=== PATIENT | female | born 1965 | race African-American/Black ===

== ENCOUNTER 2016-07-02 15:00 | Outpatient (RCR) | payer MEDICARE, MEDICAID ==
[~2016-07-02 15:00] MED LIST: ALBUTEROL0.09 MG/A1 IH; ANTIVERT 25MG25 MG PO; ATIVAN 0.50.5 MG/TAB; ATIVAN 0.50.5 MG/TAB PO; ATIVAN 1MG T1 MG/TAB PO; CLEOCIN HCL300 MG PO; CYMBALTA 60MG60 MG PO; DIAMOX125 MG; DOXYCYCLINE 10100 MG PO; FLEXERIL10 MG PO; GABAPENTIN300 MG PO; K-DUR20 MEQ PO; LUNESTA3 MG PO; MAG-OX 400400 MG/TAB PO; MOTRIN 800800 MG/TAB PO; MUSCLE RELAXER; NAPROSYN500 MG PO; NEURONTIN600 MG/TAB PO; NO HOME MEDICATIONS; PERCOCET 325 MG1 TA2 PO; PHENERGAN 25 TA25 MG PO; PRILOSEC 20MG20 MG PO; SEROQUEL 2525 MG/TAB PO; SEROQUEL300 MG; SEROQUEL300 MG PO; SOMA; VALIUM 2MG T2 MG/TAB PO; ZITHROMAX 250M250 MG PO; ZOFRAN 4MG T4 MG/TAB PO; [UNRECOGNIZED DRUG - OTHER]; [UNRECOGNIZED DRUG - REMARK]
== END 2016-07-08 12:44 | disposition still patient (30) ==
LOC: WSPT 15:00
DX: M54.2 Cervicalgia (principal); Z87.828 Personal history of other (healed) physical injury and trauma
CPT/HCPCS: G8978-GP; G8979-GP; G8980-GP

== ENCOUNTER → 2016-12-11 | Outpatient (CLI) | payer SELFPAY ==
[~2016-12-11] VITALS: Ht 160 cm; Wt 46.0 kg
[2016-12-11 13:42] VITALS: BP 145/102; PULSE 73
[2016-12-11 15:08] VITALS: BP 154/97; PULSE 69
== END ==
LOC: COL.RAD 13:00
DX: M54.12 Radiculopathy, cervical region (principal)
CPT/HCPCS: J1100

== ENCOUNTER 2017-07-26 22:33 | Inpatient (IN) | payer MEDICARE, MEDICAID ==
[~2017-07-26] VITALS: Ht 160 cm; Wt 48.2 kg
[2017-07-26 23:30] LABS: BASO # 0.1 (0.0-0.2); BASO % 1.2 % (0.0-2.0); EOS % 0.2 % (0-4.0); GRAN # 1.8 (1.4-6.5); GRAN % 34.9 % (42.2-75.2); HEMATOCRIT 38.4 % (37.0-47.0); HEMOGLOBIN 13.3 g/dl (12.5-16.0); LYMPH # 2.4 (1.2-3.4); MEAN CELL VOLUME 92 fl (80.0-100.0); MEAN CORPUSCULAR HEMOGLOBIN 32 pg (27.0-31.0); MEAN CORPUSCULAR HGB CONC 35 g/dl (33.0-37.0); MEAN PLATELET VOLUME 8.7 fl (7.4-10.4); MONO # 0.8 (0.1-0.6); MONO % 15.5 % (1.7-9.3); PLATELET COUNT 277 K/mm3 (130-400); RED BLOOD COUNT 4.18 M/mm3 (4.10-5.30); REDCELL DISTRIBUTION WIDTH-CV 15.2 % (11.5-14.5)
[2017-07-26 23:39] LABS: ALBUMIN 5.2 gm/dL (3.5-5.0); BILIRUBIN,TOTAL 1.4 mg/dL (0.0-1.0); CREATININE, serum 0.67 mg/dL (0.52-1.25)
[2017-07-26 23:46] LABS: POTASSIUM 2.7 mmol/L (3.4-5.0)
[2017-07-27] VITALS (10 sets, daily range): BP systolic 103–171; BP diastolic 72–105; PULSE 66–93; TEMP 97.4–99.4
[2017-07-27 03:31] LABS: COLLECTION METHOD CLEAN CATCH
[2017-07-27 03:36] LABS: PH 7 (5-8); SQUAMOUS EPITHELIAL 0-2 /hpf; URINE APPEARANCE Clear; URINE BACTERIA Rare /hpf; URINE BILIRUBIN Negative (NEGATIVE); URINE BLOOD Negative (NEGATIVE); URINE COLOR Yellow; URINE GLUCOSE Negative (NEGATIVE); URINE KETONE Negative (NEGATIVE); URINE LEUKOCYTE ESTERASE Negative (NEGATIVE); URINE NITRATE Negative (NEGATIVE); URINE PROTEIN(semi-quant) Negative (NEGATIVE); URINE RBC 0-2 /hpf; URINE UROBILINOGEN Negative (NEGATIVE)
[2017-07-27] MEDS ORDERED: NEURONTIN800 MG/TAB PO (03:52)
[2017-07-27] MEDS ORDERED: PRILOSEC 20MG20 MG PO (03:55)
[2017-07-27] MEDS ORDERED: VITAMIN D3400 I1 PO (03:56)
[2017-07-27 11:11] LABS: CREATININE, serum 0.62 mg/dL (0.52-1.25); MAGNESIUM 1.8 mg/dL (1.6-2.3); POTASSIUM 4.7 mmol/L (3.4-5.0)
[2017-07-28 01:50] VITALS: BP 118/78; PULSE 77; TEMP 98.7
[2017-07-28 04:20] VITALS: BP 122/70; PULSE 66; TEMP 98.9
[2017-07-28 05:58] VITALS: BP 116/82; PULSE 80
[2017-07-28 06:55] LABS: BASO % 0.7 % (0.0-2.0); EOS # 0.1 (0.0-0.7); EOS % 1.7 % (0-4.0); GRAN # 1.4 (1.4-6.5); GRAN % 34.6 % (42.2-75.2); LYMPH # 2.1 (1.2-3.4); LYMPH % 49.9 % (20.0-51.0); MEAN CELL VOLUME 95 fl (80.0-100.0); MEAN CORPUSCULAR HGB CONC 33 g/dl (33.0-37.0); MEAN PLATELET VOLUME 9.7 fl (7.4-10.4); MONO # 0.5 (0.1-0.6); MONO % 12.9 % (1.7-9.3); PLATELET COUNT 230 K/mm3 (130-400); RED BLOOD COUNT 3.62 M/mm3 (4.10-5.30); REDCELL DISTRIBUTION WIDTH-CV 15.4 % (11.5-14.5)
[2017-07-28 07:06] LABS: CALCIUM 9.4 mg/dL (8.4-10.2); CREATININE, serum 0.82 mg/dL (0.52-1.25); MAGNESIUM 1.8 mg/dL (1.6-2.3); POTASSIUM 4.3 mmol/L (3.4-5.0)
[2017-07-28 07:12] LABS: HEMATOCRIT 34.5 % (37.0-47.0); HEMOGLOBIN 11.4 g/dl (12.5-16.0); MEAN CORPUSCULAR HEMOGLOBIN 31 pg (27.0-31.0)
[2017-07-28 08:12] VITALS: BP 151/91; PULSE 73; TEMP 97.4
[2017-07-28] MEDS ORDERED: FOLIC ACID 11 MG/TA1 PO (10:46)
[2017-07-28] MEDS ORDERED: DUO-KAPS1 CAP PO (10:47)
[2017-07-28] MEDS ORDERED: THIAMINE 1100 MG/TAB PO (10:47)
[2017-07-28 11:41] VITALS: BP 138/87; PULSE 81; TEMP 97.8
== END 2017-07-28 12:30 | disposition home or self-care (01) | DRG 641 ==
LOC: COL.ER 22:33 → MEDICAL 07-27 03:45
PROVIDERS: Emergency Medicine; Nurse Practitioner; Physician Assistant
DX: E87.6 Hypokalemia (principal); E44.0 Moderate protein-calorie malnutrition; Z68.1 Body mass index [BMI] 19.9 or less, adult; E83.42 Hypomagnesemia; R19.7 Diarrhea, unspecified; G62.9 Polyneuropathy, unspecified; F10.10 Alcohol abuse, uncomplicated; F17.210 Nicotine dependence, cigarettes, uncomplicated; Z23 Encounter for immunization
CPT/HCPCS: 99222-AI; 99239; C9113; J3411; J3475; J3480; J7030

== ENCOUNTER → 2018-04-23 | Outpatient (CLI) | payer MEDICARE, MEDICAID ==
[~2018-04-23] MED LIST changes: +DUO-KAPS1 CAP PO; +FOLIC ACID 11 MG/TA1 PO; +NEURONTIN800 MG/TAB PO; +THIAMINE 1100 MG/TAB PO; +VITAMIN D3400 I1 PO
== END ==
LOC: COL.RAD 08:06
DX: G43.A1 Cyclical vomiting, in migraine, intractable (principal)
CPT/HCPCS: A9541

== ENCOUNTER 2018-11-02 17:54 | Emergency (ER) | payer MEDICARE, MEDICAID ==
[~2018-11-02] VITALS: Ht 160 cm; Wt 54.5 kg
[~2018-11-02 17:54] MED LIST changes: +CARAFATE 1GM1 G PO; +PROTONIX 40MG T40 MG PO
[2018-11-02 18:09] VITALS: TEMP 97
[2018-11-02 19:14] LABS: BASO # 0.1 (0.0-0.2); EOS % 0.8 % (0-4.0); GRAN # 1.3 (1.4-6.5); GRAN % 26.5 % (42.2-75.2); HEMATOCRIT 38.7 % (37.0-47.0); LYMPH # 3.2 (1.2-3.4); LYMPH % 66.8 % (20.0-51.0); MEAN CELL VOLUME 95 fl (80.0-100.0); MEAN CORPUSCULAR HEMOGLOBIN 32 pg (27.0-31.0); MEAN CORPUSCULAR HGB CONC 34 g/dl (33.0-37.0); MEAN PLATELET VOLUME 8.8 fl (7.4-10.4); MONO # 0.2 (0.1-0.6); MONO % 4.7 % (1.7-9.3); PLATELET COUNT 235 K/mm3 (130-400); RED BLOOD COUNT 4.09 M/mm3 (4.10-5.30); REDCELL DISTRIBUTION WIDTH-CV 15.9 % (11.5-14.5)
[2018-11-02 19:26] LABS: ALANINE AMINOTRANSFERASE 6 U/L (9-52); ALBUMIN 4.5 gm/dL (3.5-5.0); ALCOHOL(ethanol),MEDICAL 248 mg/dL; ALKALINE PHOSPHATASE 86 U/L (50-136); ANION GAP 15 mmol/L (7-16); AST,SGOT 30 U/L (15-37); BILIRUBIN,TOTAL 0.2 mg/dL (0.0-1.0); BLOOD UREA NITROGEN 14 mg/dL (7-17); CALCIUM 9.1 mg/dL (8.4-10.2); CARBON DIOXIDE 31 mmol/L (22-30); CHLORIDE 102 mmol/L (98-107); CREATININE, serum 0.65 (0.52-1.25); GLUCOSE 84 mg/dL (74-106); MAGNESIUM 1.5 mg/dL (1.6-2.3); PHOSPHOROUS 4.5 mg/dL (2.5-4.5); POTASSIUM 3.4 mmol/L (3.4-5.0); SODIUM 147 mmol/L (137-145); TOTAL PROTEIN 7.5 gm/dL (6.4-8.2)
[2018-11-02 19:34] LABS: ACETAMINOPHEN < 10 ug/mL (10-30); SALICYLATE < 1.0 mg/dL
[2018-11-02 21:13] LABS: COLLECTION METHOD CLEAN CATCH
[2018-11-02 21:20] LABS: MUCOUS Present /lpf; PH 7 (5-8); SQUAMOUS EPITHELIAL 0-2 /hpf; URINE APPEARANCE Clear; URINE BACTERIA None Seen /hpf; URINE BILIRUBIN Negative (NEGATIVE); URINE BLOOD Negative (NEGATIVE); URINE COLOR Yellow; URINE GLUCOSE Negative (NEGATIVE); URINE KETONE Negative (NEGATIVE); URINE LEUKOCYTE ESTERASE Negative (NEGATIVE); URINE NITRATE Negative (NEGATIVE); URINE PROTEIN(semi-quant) 1+ (NEGATIVE); URINE RBC 0-2 /hpf; URINE UROBILINOGEN Negative (NEGATIVE)
[2018-11-02 21:31] LABS: TRICYCLIC ANTIDEPRESS URINE NEGATIVE
[2018-11-02] MEDS ORDERED: COZAAR 50MG50 MG/TAB PO (23:24)
[2018-11-03 05:27] VITALS: BP 141/79; PULSE 80
== END 2018-11-03 05:29 | disposition home or self-care (01) ==
LOC: COL.ER 17:54
PROVIDERS: Emergency Medicine
DX: R45.851 Suicidal ideations (principal); F32.9 Major depressive disorder, single episode, unspecified; F10.129 Alcohol abuse with intoxication, unspecified; K21.9 Gastro-esophageal reflux disease without esophagitis; F17.210 Nicotine dependence, cigarettes, uncomplicated; F12.10 Cannabis abuse, uncomplicated; Y90.8 Blood alcohol level of 240 mg/100 ml or more

== ENCOUNTER → 2020-01-02 | Outpatient (CLI) | payer MEDICARE, MEDICAID ==
[~2020-01-02] MED LIST changes: +COZAAR 50MG50 MG/TAB PO
== END ==
LOC: COL.RAD 12-26 14:00
DX: M46.1 Sacroiliitis, not elsewhere classified (principal)
CPT/HCPCS: G0260; J3301

== ENCOUNTER 2020-07-24 22:41 | Emergency (ER) | payer MEDICARE, MEDICAID ==
[~2020-07-24] VITALS: Ht 160 cm; Wt 63.6 kg
[2020-07-24 22:56] VITALS: TEMP 97.6
[2020-07-25] MEDS ORDERED: MEDROL 4MG DOSPA4 MG PO (00:25)
[2020-07-25] MEDS ORDERED: FLEXERIL 1010 MG/TAB PO (00:25)
[2020-07-25 01:06] VITALS: BP 138/70; PULSE 66
== END 2020-07-25 01:06 | disposition home or self-care (01) ==
LOC: COL.ER 22:41
DX: M54.16 Radiculopathy, lumbar region (principal); F17.200 Nicotine dependence, unspecified, uncomplicated; Z90.710 Acquired absence of both cervix and uterus; Z88.0 Allergy status to penicillin; Z88.5 Allergy status to narcotic agent; Z88.6 Allergy status to analgesic agent
CPT/HCPCS: J1170; J1885; J3360

== ENCOUNTER → 2020-08-03 | Outpatient (CLI) | payer MEDICARE, MEDICAID ==
[~2020-08-03] MED LIST changes: +FLEXERIL 1010 MG/TAB PO; +MEDROL 4MG DOSPA4 MG PO
== END ==
LOC: COL.RAD 12:32
DX: M46.1 Sacroiliitis, not elsewhere classified (principal)
CPT/HCPCS: G0260; J3301

== ENCOUNTER 2020-09-06 16:15 | Outpatient (RCR) | payer MEDICARE, MEDICAID | END 2020-10-28 | disposition still patient (30) | LOC: WSPT | DX: M46.1 Sacroiliitis, not elsewhere classified (principal) ==

== ENCOUNTER 2020-12-19 14:22 | Emergency (ER) | payer MEDICARE, MEDICAID ==
[~2020-12-19] VITALS: Ht 160 cm; Wt 59.1 kg
[2020-12-19 14:40] VITALS: BP 151/76; TEMP 98.2
[2020-12-19] MEDS ORDERED: FLEXERIL 1010 MG/TAB PO (15:47)
[2020-12-19 16:09] VITALS: PULSE 57
== END 2020-12-19 16:10 | disposition home or self-care (01) ==
LOC: COL.ER 14:22
DX: M54.2 Cervicalgia (principal); M62.838 Other muscle spasm; F17.210 Nicotine dependence, cigarettes, uncomplicated; Z88.6 Allergy status to analgesic agent
CPT/HCPCS: J1885

== ENCOUNTER → 2021-03-29 | Outpatient (CLI) | payer MEDICARE, MEDICAID | LOC: COL.RAD 10:30 | DX: M46.1 Sacroiliitis, not elsewhere classified (principal) | CPT/HCPCS: G0260; J3301; Q9967 ==

== ENCOUNTER → 2021-08-26 | Outpatient (CLI) | payer MEDICARE, MEDICAID ==
[~2021-08-26] VITALS: Ht 160 cm; Wt 55.9 kg
[2021-08-26 13:17] VITALS: BP 160/80; PULSE 71; TEMP 97.5
[2021-08-26 13:55] VITALS: BP 151/76; PULSE 71
== END ==
LOC: COL.RAD 12:58
DX: M51.36 Other intervertebral disc degeneration, lumbar region (principal)
CPT/HCPCS: J3301

== ENCOUNTER → 2022-01-15 | Outpatient (CLI) | payer MEDICARE, MEDICAID ==
[~2022-01-15] MED LIST changes: +ASPIRIN 81M81 MG/TA2 PO; +LIPITOR 40MG TA40 MG PO; +LOPRESSOR 225 MG/TAB PO; +NICODERM C21 MG/PATC TD; +NITROSTAT0.4 MG/TAB SL; +PLAVIX 75MG TAB75 MG PO
== END ==
LOC: COL.RAD 07:11
DX: M46.1 Sacroiliitis, not elsewhere classified (principal)
CPT/HCPCS: G0260; J3301

== ENCOUNTER 2022-02-02 23:01 | Inpatient (IN) | payer MEDICARE, MEDICAID ==
[~2022-02-02] VITALS: Ht 160 cm; Wt 56.9 kg
[~2022-02-02 23:01] MED LIST changes: -ASPIRIN 81M81 MG/TA2 PO; -LIPITOR 40MG TA40 MG PO; -LOPRESSOR 225 MG/TAB PO; -NICODERM C21 MG/PATC TD; -NITROSTAT0.4 MG/TAB SL; -PLAVIX 75MG TAB75 MG PO
[2022-02-02 23:38] LABS: HEMATOCRIT 41.5 % (37.0-47.0); HEMOGLOBIN 13.8 g/dl (12.5-16.0); MEAN CELL VOLUME 91 fl (80.0-100.0); MEAN CORPUSCULAR HEMOGLOBIN 30 pg (27-31); MEAN CORPUSCULAR HGB CONC 33 g/dl (33.0-37.0); MEAN PLATELET VOLUME 8.7 fl (7.4-10.4); PLATELET COUNT 293 K/mm3 (130-400); RED BLOOD COUNT 4.54 M/mm3 (4.10-5.30); REDCELL DISTRIBUTION WIDTH-CV 13.7 % (11.5-14.5)
[2022-02-02 23:52] LABS: BAND 1 % (0-10); EOSINOPHIL 3 % (0-4); LYMPHOCYTE 62 % (20.0-51.0); NEUTROPHILS 26 % (42.0-75.2); PLATELET ESTIMATE NORMAL (NORMAL)
[2022-02-02 23:59] LABS: ALANINE AMINOTRANSFERASE 13 U/L (0-55); ALKALINE PHOSPHATASE 85 U/L (40-150); ANION GAP 15 mmol/L (7-16); AST,SGOT 16 U/L (5-34); BILIRUBIN,TOTAL 0.5 mg/dL (0.2-1.2); BLOOD UREA NITROGEN 12 mg/dL (10-20); CALCIUM 10.3 mg/dL (8.4-10.2); CARBON DIOXIDE 23 mmol/L (22-29); CHLORIDE 106 mmol/L (98-107); CREATININE, serum 0.94 mg/dL (0.57-1.11); GLUCOSE 134 mg/dL (70-99); LIPASE 19 U/L (8-78); SODIUM 144 mmol/L (136-145); TOTAL PROTEIN 7.1 gm/dL (6.2-8.1)
[2022-02-03] VITALS (18 sets, daily range): BP systolic 97–140; BP diastolic 59–114; PULSE 43–83; TEMP 97.6–98.6
[2022-02-03 00:02] LABS: ALCOHOL(ethanol),MEDICAL < 10 mg/dL (0-10); POTASSIUM 2.9 mmol/L (3.5-4.5)
[2022-02-03 00:06] LABS: TROPONIN-I < 0.010 ng/mL (0.00-0.033)
[2022-02-03 00:19] LABS: TSH w REFLEX 2.855 uIU/mL (0.350-4.940)
[2022-02-03 02:37] LABS: COLLECTION METHOD CLEAN CATCH
[2022-02-03 02:46] LABS: MUCOUS Present (NOT PRESENT); SQUAMOUS EPITHELIAL 0-2 /hpf (0-10); URINE BACTERIA None Seen /hpf (NONE SEEN); URINE COLOR Yellow (YELLOW)
[2022-02-03 02:47] LABS: PH 5 (5-8); URINE APPEARANCE Clear (CLEAR/HAZY); URINE BLOOD 2+ (NEGATIVE); URINE GLUCOSE Negative (NEGATIVE); URINE KETONE Negative (NEGATIVE); URINE NITRATE Negative (NEGATIVE); URINE PROTEIN(semi-quant) 1+ (NEGATIVE); URINE UROBILINOGEN Negative (NEGATIVE)
--- NOTE | 2022-02-03 05:00 | NUR ---
PT ARRIVED TO THE MEDICAL FLOOR TO 0330HRS TO ROOM 308. PT VERY DROWSY. I HAD TO CALL HER NAME SEVERAL TIMES TO GET HER TO ANSWER QUESTIONS. PT A&O X 4; VSS; O2 2L VIA NC. PT COMPLAINED TO CHEST AND ABD PAIN, SHE DESCRIBED PRESSURE, TIGHTNESS. PT DENIED SOB, N,V,D OR DIZZINESS. ADMISSIONS ASSESSMENT AND MED REC COMPLETE POSSIBLE. PT ORIENTED TO ROOM, ALTHOUGH SHE FELL ASLEEP THRU MOST OF IT. WILL NEED REINFORCEMENT. CALL LIGHT WITHIN REACH.
[2022-02-03 06:44] LABS: BASO # 0.1 K/mm3 (0.0-0.2); BASO % 0.4 % (0.0-2.0); CALCIUM 9.3 mg/dL (8.4-10.2); CREATININE, serum 0.71 mg/dL (0.57-1.11); EOS % 0.1 % (0.0-4.0); GRAN # 9.5 K/mm3 (1.4-6.5); GRAN % 76.4 % (42.2-75.2); HEMATOCRIT 39.6 % (37.0-47.0); HEMOGLOBIN 12.7 g/dl (12.5-16.0); LYMPH # 1.9 K/mm3 (1.2-3.4); LYMPH % 15.4 % (20.0-51.0); MAGNESIUM 1.7 mg/dL (1.6-2.6); MEAN CELL VOLUME 94 fl (80.0-100.0); MEAN CORPUSCULAR HEMOGLOBIN 30 pg (27-31); MEAN CORPUSCULAR HGB CONC 32 g/dl (33.0-37.0); MEAN PLATELET VOLUME 8.8 fl (7.4-10.4); MONO # 0.9 K/mm3 (0.1-0.6); MONO % 7.4 % (1.7-9.3); PLATELET COUNT 230 K/mm3 (130-400); POTASSIUM 4.6 mmol/L (3.5-4.5); RED BLOOD COUNT 4.23 M/mm3 (4.10-5.30); REDCELL DISTRIBUTION WIDTH-CV 13.9 % (11.5-14.5)
[2022-02-03 08:16] LABS: TROPONIN-I 100.592 ng/mL (0.00-0.033)
--- NOTE | 2022-02-03 09:28 | NUR ---
PT SLEEPING IN BED. MORNING MEDICATIONS GIVEN. SHIFT ASSESSMENT COMPLETED. PT COMPLAINING OF TIGHTNESS IN HER CHEST. PT STATES SHE FEELS SOB AND DIZZY WHEN UP MOVING AROUND. CURRENTLY ON 2L VIA NC. DENIES ANY NEEDS AT THIS TIME. REMAINS NPO. WILL CONTINUE TO MONITOR.
[2022-02-03 09:43] LABS: PARTIAL THROMBOPLASTIN TIME 38.7 SECONDS (26.0-37.0)
--- NOTE | 2022-02-03 11:29 | NUR ---
recording studio set up worker met with patient to complete intake and discuss discharge plan. Patient reports that she is currently staying with her mother Nancie ([phone]) in [place]. She is independent with her ADL's. SHe reports that she has access to a cane at home but does not use it. She has no home oxygen needs. PCP is and she utilizes [facility] for prescriptions with no cost difficulty. Patient reports that she does not have a DPOA-HC established. She is not legally and has no children. Her mother is her established legal next of kin. Patient is planning on returning home once medically ready. Discharge plan: Home
--- NOTE | 2022-02-03 14:32 | NUR ---
SEE MERGE DOCUMENTATION FOR MEDICATION ADMINISTRATION AND INTRA/POST PROCEDURE SEDATION ASSESSMENTS.
--- NOTE | 2022-02-03 17:01 | NUR ---
RE:REFERRAL FOR NSTEMI - Pt resting soundly. Delievered risk factor education to family. Discussed follow up tomorrow or when patient is home. Pt family verbalized understanding. approx 2 min with patient family, 5 min chart review.
--- NOTE | 2022-02-04 01:42 | NUR ---
BEGINNING OF SHIFT: PATIENT RESTING IN SUPINE POSITION. PATIENT HAVING COMPLAINTS OF GROIN PAIN AND COMPRESSION DEVICE REMOVED. PATIENT ALSO COMPLAINS OF FEELING UNABLE TO TAKE A DEEP BREATH AND FEELING SHORT OF AIR. PATIENT SAT UP AND REPORTS BREATHING SLIGHTLY BETTER. WILL DISCUSS WITH RT FOR INCENTIVE SPIROMETER. PATIENT ON 3L/NC VITAL SIGNS WITHIN NORMAL LIMITS.
[2022-02-04 03:36] VITALS: BP 101/68; PULSE 78; TEMP 98.4
[2022-02-04 04:00] VITALS: BP 101/68; PULSE 78; TEMP 98.4
--- NOTE | 2022-02-04 06:02 | NUR ---
END OF SHIFT. PATIENT CONTINUED TO COMPLAIN OF DIFFICULTY CATCHING BREATH. PROVIDER NOTIFIED AND IMAGING ORDERED. PATIENT GIVEN ONE TIME DOSE OF LASIX FOR FLUID OVERLOAD AND PATIENT HAD GOOD OUTPUT FROM THIS. PATIENT ABLE TO REST QUIETLY AFTER. PATIENT HAD COMPLAINTS OF PAIN IN GROIN FROM STENT INSERTION SITE. PATIENT GIVEN PRN TYLENOL AND TORADOL. PATIENT DRESSING REAMINED CLEAN, DRY, AND INTACT THIS SHIFT WITH NO DRAINAGE NOTED.
[2022-02-04 07:23] VITALS: BP 107/70; PULSE 81; TEMP 97.9
[2022-02-04] MEDS ORDERED: ASPIRIN 81M81 MG/TA2 PO (10:04)
[2022-02-04] MEDS ORDERED: LOPRESSOR 225 MG/TAB PO (10:04)
[2022-02-04] MEDS ORDERED: PLAVIX 75MG TAB75 MG PO (10:04)
[2022-02-04] MEDS ORDERED: LIPITOR 40MG TA40 MG PO (10:05)
[2022-02-04] MEDS ORDERED: NITROSTAT0.4 MG/TAB SL (10:06)
[2022-02-04] MEDS ORDERED: NICODERM C21 MG/PATC TD (10:07)
--- NOTE | 2022-02-04 12:55 | NUR ---
1230 - PATIENT DISCHARGE PACKET AND EDUCATION PROVIDED. ALL QUESTIONS ANSWERED. IV REMOVED PER PROTOCOL. PATIENT AND FAMILY SAFELY TRANSPORTED TO ER ENTRANCE BY RN TO FAMILY VEHICLE.
== END 2022-02-04 12:30 | disposition home or self-care (01) | DRG 246 ==
LOC: COL.ER 23:01 → MEDICAL 02-03 01:55 → COL.ER 02-03 01:55 → MEDICAL 02-03 01:55
PROVIDERS: Emergency Medicine; Physician Assistant; Student in an Organized Health Care Education/Training Program; ADMIT Internal Medicine
PROC: 027034Z Dilation of Coronary Artery, One Artery with Drug-eluting Intraluminal Device, Percutaneous Approach (ICD-10-PCS; principal; 2022-02-03)
PROC: 4A023N7 Measurement of Cardiac Sampling and Pressure, Left Heart, Percutaneous Approach (ICD-10-PCS; 2022-02-03)
PROC: B2111ZZ Fluoroscopy of Multiple Coronary Arteries using Low Osmolar Contrast (ICD-10-PCS; 2022-02-03)
DX: I21.4 Non-ST elevation (NSTEMI) myocardial infarction (principal); J96.01 Acute respiratory failure with hypoxia; E87.2 Acidosis; E46 Unspecified protein-calorie malnutrition; K20.90 Esophagitis, unspecified without bleeding; F32.A Depression, unspecified; F41.9 Anxiety disorder, unspecified; G62.9 Polyneuropathy, unspecified; E87.6 Hypokalemia; F17.210 Nicotine dependence, cigarettes, uncomplicated; F10.10 Alcohol abuse, uncomplicated; Z20.822 Contact with and (suspected) exposure to COVID-19; E78.5 Hyperlipidemia, unspecified; I10 Essential (primary) hypertension; I95.9 Hypotension, unspecified; K52.9 Noninfective gastroenteritis and colitis, unspecified; T68.XXXA Hypothermia, initial encounter; I25.10 Atherosclerotic heart disease of native coronary artery without angina pectoris; R00.8 Other abnormalities of heart beat; Z90.710 Acquired absence of both cervix and uterus; Z88.6 Allergy status to analgesic agent; Z88.0 Allergy status to penicillin; Z68.22 Body mass index [BMI] 22.0-22.9, adult; Z23 Encounter for immunization
CPT/HCPCS: OP; 99222-AI; 99232-AI; 99239; C1725; C1760; C1769; C1874; C1887; C1894; C9113; C9600; J0583; J0780; J1200; J1644; J1885; J1940; J2250; J2270; J2405; J2765; J3480; J7120; Q9967

== ENCOUNTER 2022-02-14 16:37 | Emergency (ER) | payer MEDICARE, MEDICAID ==
[~2022-02-14] VITALS: Ht 160 cm; Wt 55.0 kg
[~2022-02-14 16:37] MED LIST changes: +ASPIRIN 81M81 MG/TA2 PO; +LIPITOR 40MG TA40 MG PO; +LOPRESSOR 225 MG/TAB PO; +NICODERM C21 MG/PATC TD; +NITROSTAT0.4 MG/TAB SL; +PLAVIX 75MG TAB75 MG PO
[2022-02-14 16:45] VITALS: TEMP 99.1
[2022-02-14 17:26] LABS: BASO # 0.1 K/mm3 (0.0-0.2); BASO % 0.8 % (0.0-2.0); EOS # 0.2 K/mm3 (0.0-0.7); GRAN # 4.3 K/mm3 (1.4-6.5); GRAN % 46.9 % (42.2-75.2); HEMATOCRIT 43.2 % (37.0-47.0); HEMOGLOBIN 13.8 g/dl (12.5-16.0); LYMPH % 43.2 % (20.0-51.0); MEAN CELL VOLUME 95 fl (80.0-100.0); MEAN CORPUSCULAR HEMOGLOBIN 30 pg (27-31); MEAN CORPUSCULAR HGB CONC 32 g/dl (33.0-37.0); MEAN PLATELET VOLUME 9.3 fl (7.4-10.4); MONO # 0.6 K/mm3 (0.1-0.6); MONO % 6.9 % (1.7-9.3); PLATELET COUNT 397 K/mm3 (130-400); RED BLOOD COUNT 4.57 M/mm3 (4.10-5.30); REDCELL DISTRIBUTION WIDTH-CV 14.1 % (11.5-14.5)
[2022-02-14 17:29] LABS: INR 1.1 (0.8-3.0); PROTHROMBIN TIME 12.9 SECONDS (9.7-12.8)
[2022-02-14 17:42] LABS: ALBUMIN 4.4 gm/dL (3.5-5.0); BILIRUBIN,TOTAL 0.7 mg/dL (0.2-1.2); CALCIUM 10.8 mg/dL (8.4-10.2); CREATININE, serum 0.88 mg/dL (0.57-1.11); POTASSIUM 3.8 mmol/L (3.5-4.5)
[2022-02-14 17:49] LABS: TROPONIN-I 1.374 ng/mL (0.00-0.033)
[2022-02-14 20:35] VITALS: BP 123/70; PULSE 86
== END 2022-02-14 20:35 | disposition home or self-care (01) ==
LOC: COL.ER 16:37
PROVIDERS: Emergency Medicine
DX: R07.89 Other chest pain (principal); R77.8 Other specified abnormalities of plasma proteins; F17.210 Nicotine dependence, cigarettes, uncomplicated; Z95.5 Presence of coronary angioplasty implant and graft; Z79.82 Long term (current) use of aspirin; Z79.02 Long term (current) use of antithrombotics/antiplatelets
CPT/HCPCS: J7030

== ENCOUNTER 2022-02-19 15:26 | Outpatient (RCR) | payer MEDICARE, MEDICAID | END 2022-02-26 | disposition home or self-care (01) | LOC: COL.CR | DX: Z48.812 Encounter for surgical aftercare following surgery on the circulatory system (principal); Z95.5 Presence of coronary angioplasty implant and graft ==

== ENCOUNTER → 2022-04-28 | Outpatient (RCR) | payer MEDICARE, MEDICAID | END | disposition home or self-care (01) | LOC: COL.CR | DX: Z48.812 Encounter for surgical aftercare following surgery on the circulatory system (principal); Z95.5 Presence of coronary angioplasty implant and graft ==

== ENCOUNTER 2022-07-28 15:12 | Outpatient (RCR) | payer MEDICARE, MEDICAID | END 2022-07-29 | disposition home or self-care (01) | LOC: COL.CR | DX: Z48.812 Encounter for surgical aftercare following surgery on the circulatory system (principal); Z95.5 Presence of coronary angioplasty implant and graft ==

== ENCOUNTER 2022-08-20 14:57 | Outpatient (RCR) | payer MEDICARE, MEDICAID ==
[~2022-08-20 14:57] MED LIST changes: +PAXLOVID CO-PA1 EACH PO
== END 2022-08-20 15:00 | disposition home or self-care (01) ==
LOC: COL.CR 14:57
DX: Z48.812 Encounter for surgical aftercare following surgery on the circulatory system (principal); Z95.5 Presence of coronary angioplasty implant and graft

== ENCOUNTER 2022-10-23 13:50 | Outpatient (RCR) | payer MEDICARE, MEDICAID ==
[~2022-10-23 13:50] MED LIST changes: +BRILINTA90 MG PO; +COLCRYS0.6 MG PO; +IMDUR 30MG30 MG/TAB PO; +INDOCIN 25MG CA25 MG PO; +PRILOTC; +RANEXA 500MG T500 MG PO
== END 2022-10-26 | disposition home or self-care (01) ==
LOC: COL.CR
DX: Z95.5 Presence of coronary angioplasty implant and graft (principal); Z48.812 Encounter for surgical aftercare following surgery on the circulatory system

== ENCOUNTER 2022-11-10 13:00 | Outpatient (RCR) | payer MEDICARE, MEDICAID ==
[2022-11-14] MEDS ORDERED: LIPITOR 80MG80 MG PO (01:13)
[2022-11-14] MEDS ORDERED: COZAAR 25MG25 MG/TAB PO (01:16)
== END 2022-11-26 | disposition home or self-care (01) ==
LOC: COL.CR
DX: Z48.812 Encounter for surgical aftercare following surgery on the circulatory system (principal); Z95.5 Presence of coronary angioplasty implant and graft

== ENCOUNTER 2023-04-29 20:33 | Emergency (ER) | payer MEDICARE, MEDICAID ==
[~2023-04-29] VITALS: Ht 160 cm; Wt 65.0 kg
[~2023-04-29 20:33] MED LIST changes: +COZAAR 25MG25 MG/TAB PO; +LIPITOR 80MG80 MG PO
[2023-04-29 20:39] VITALS: TEMP 98.5
[2023-04-29 21:26] LABS: HEMATOCRIT 38.2 % (37.0-47.0); HEMOGLOBIN 12.5 g/dl (12.5-16.0); MEAN CELL VOLUME 93 fl (80.0-100.0); MEAN CORPUSCULAR HEMOGLOBIN 31 pg (27-31); MEAN CORPUSCULAR HGB CONC 33 g/dl (33.0-37.0); MEAN PLATELET VOLUME 9.1 fl (7.4-10.4); PLATELET COUNT 299 K/mm3 (130-400); REDCELL DISTRIBUTION WIDTH-CV 13.3 % (11.5-14.5)
[2023-04-29 21:39] LABS: ALANINE AMINOTRANSFERASE 23 U/L (0-55); ALBUMIN 3.6 gm/dL (3.5-5.0); ALKALINE PHOSPHATASE 77 U/L (40-150); ANION GAP 10 mmol/L (7-16); AST,SGOT 27 U/L (5-34); BILIRUBIN,TOTAL 0.2 mg/dL (0.2-1.2); BLOOD UREA NITROGEN 13 mg/dL (10-20); CALCIUM 9.9 mg/dL (8.4-10.2); CARBON DIOXIDE 25 mmol/L (22-29); CHLORIDE 107 mmol/L (98-107); CREATININE, serum 0.88 mg/dL (0.57-1.11); GLUCOSE 96 mg/dL (70-99); LIPASE 24 U/L (8-78); POTASSIUM 3.6 mmol/L (3.5-4.5); SODIUM 142 mmol/L (136-145); TOTAL PROTEIN 6.5 gm/dL (6.2-8.1)
[2023-04-29 21:44] LABS: PROTHROMBIN TIME 11.3 SECONDS (9.7-12.8)
[2023-04-29 21:46] LABS: TROPONIN-I < 0.010 ng/mL (0.00-0.033)
[2023-04-29 21:47] LABS: PARTIAL THROMBOPLASTIN TIME 30.2 SECONDS (26.0-37.0)
[2023-04-29 21:51] LABS: D-DIMER < 200.00 ng/mLDDu (200-230)
[2023-04-29 21:58] LABS: EOSINOPHIL 5 % (0-4); LYMPHOCYTE 35 % (20.0-51.0); NEUTROPHILS 43 % (42.0-75.2)
[2023-04-29 22:00] LABS: HYPOCHROMIA 1+; PLATELET ESTIMATE NORMAL (NORMAL)
[2023-04-29 22:56] VITALS: BP 131/93; PULSE 68
== END 2023-04-29 23:05 | disposition home or self-care (01) ==
LOC: COL.ER 20:33
PROVIDERS: Emergency Medicine
DX: M54.2 Cervicalgia (principal); R06.00 Dyspnea, unspecified; R07.89 Other chest pain; I25.2 Old myocardial infarction; Z95.5 Presence of coronary angioplasty implant and graft
CPT/HCPCS: J2405

== ENCOUNTER 2023-05-27 13:05 | Outpatient (RCR) | payer MEDICARE, MEDICAID | END 2023-05-27 14:30 | disposition home or self-care (01) | LOC: COL.CR 13:05 | DX: Z48.812 Encounter for surgical aftercare following surgery on the circulatory system (principal); Z95.5 Presence of coronary angioplasty implant and graft ==

== ENCOUNTER → 2023-06-11 | Outpatient (CLI) | payer MEDICARE, MEDICAID | LOC: MHCPAIN 13:29 | DX: M54.2 Cervicalgia (principal); Z98.1 Arthrodesis status; R74.8 Abnormal levels of other serum enzymes; M79.18 Myalgia, other site; M25.512 Pain in left shoulder | CPT/HCPCS: G0463 ==

== ENCOUNTER → 2023-07-03 | Outpatient (CLI) | payer MEDICAID | LOC: COL.RAD 13:24 | DX: M48.02 Spinal stenosis, cervical region (principal); M43.22 Fusion of spine, cervical region; Z98.890 Other specified postprocedural states | CPT/HCPCS: A9575 ==

== ENCOUNTER → 2023-10-06 | Outpatient (CLI) | payer MEDICARE, MEDICAID ==
[2023-10-06 15:23] LABS: C-REACTIVE PROTEIN 0.49 mg/dL (0.00-0.50)
== END ==
LOC: COL.LAB 14:03
PROVIDERS: Physical Medicine & Rehabilitation Sports Medicine
DX: M79.10 Myalgia, unspecified site (principal)

== ENCOUNTER → 2023-10-06 | Outpatient (CLI) | payer MEDICARE, MEDICAID | LOC: MHCPAIN 13:02 | DX: M79.18 Myalgia, other site (principal); M25.512 Pain in left shoulder; M53.3 Sacrococcygeal disorders, not elsewhere classified; R74.8 Abnormal levels of other serum enzymes; Z98.1 Arthrodesis status | CPT/HCPCS: G0463 ==

== ENCOUNTER → 2023-12-28 | Outpatient (CLI) | payer MEDICARE, MEDICAID | LOC: MHCPAIN 15:31 | DX: M79.18 Myalgia, other site (principal); R74.8 Abnormal levels of other serum enzymes; Z98.1 Arthrodesis status; M25.512 Pain in left shoulder; M53.3 Sacrococcygeal disorders, not elsewhere classified | CPT/HCPCS: G0463 ==

== ENCOUNTER 2024-01-11 17:12 | Emergency (ER) | payer MEDICARE, MEDICAID ==
[~2024-01-11] VITALS: Ht 160 cm; Wt 68.2 kg
[2024-01-11 17:19] VITALS: TEMP 98.2
[2024-01-11] MEDS ORDERED: NS 1,000 ML IV ONE (18:15)
[2024-01-11] MEDS ORDERED: Ondansetron 4 MG/2 ML VIAL IV ONE (18:15)
[2024-01-11 18:55] LABS: BASO # 0.1 K/mm3 (0.0-0.2); BASO % 0.8 % (0.0-2.0); EOS # 0.2 K/mm3 (0.0-0.7); EOS % 2.3 % (0.0-4.0); GRAN # 5.2 K/mm3 (1.4-6.5); GRAN % 53.3 % (42.2-75.2); HEMATOCRIT 43.7 % (37.0-47.0); HEMOGLOBIN 14.3 g/dl (12.5-16.0); LYMPH # 3.4 K/mm3 (1.2-3.4); LYMPH % 35.1 % (20.0-51.0); MEAN CELL VOLUME 89 fl (80.0-100.0); MEAN CORPUSCULAR HEMOGLOBIN 29 pg (27-31); MEAN CORPUSCULAR HGB CONC 33 g/dl (33.0-37.0); MEAN PLATELET VOLUME 8.6 fl (7.4-10.4); MONO # 0.8 K/mm3 (0.1-0.6); MONO % 8.1 % (1.7-9.3); PLATELET COUNT 338 K/mm3 (130-400); RED BLOOD COUNT 4.91 M/mm3 (4.10-5.30); REDCELL DISTRIBUTION WIDTH-CV 12.9 % (11.5-14.5)
[2024-01-11 19:16] LABS: BILIRUBIN,TOTAL 0.3 mg/dL (0.2-1.2); CALCIUM 10.8 mg/dL (8.4-10.2); CREATININE, serum 1.14 mg/dL (0.57-1.11); POTASSIUM 3.8 mEq/L (3.5-4.5); TOTAL PROTEIN 7.6 g/dl (6.2-8.1)
[2024-01-11 20:15] VITALS: BP 125/67; PULSE 66
== END 2024-01-11 20:15 | disposition home or self-care (01) ==
LOC: COL.ER 17:12
PROVIDERS: Nurse Practitioner Primary Care
DX: A08.11 Acute gastroenteropathy due to Norwalk agent (principal)
CPT/HCPCS: J2405; J7030

== ENCOUNTER → 2024-03-24 | Outpatient (CLI) | payer MEDICARE, MEDICAID ==
[~2024-03-24] MED LIST changes: +Iohexol 300 - 10 ML VIAL ONE
== END ==
LOC: MHCPAIN 12:50
DX: M46.1 Sacroiliitis, not elsewhere classified (principal); M54.50 Low back pain, unspecified; M53.3 Sacrococcygeal disorders, not elsewhere classified
CPT/HCPCS: G0260; J0665; J1010; Q9967

== ENCOUNTER 2024-04-03 09:18 | Emergency (ER) | payer MEDICARE ==
[~2024-04-03] VITALS: Ht 160 cm; Wt 68.2 kg
[~2024-04-03 09:18] MED LIST changes: -Iohexol 300 - 10 ML VIAL ONE
[2024-04-03] MEDS ORDERED: NS 1,000 ML IV ONE ×2 (09:45)
[2024-04-03] MEDS ORDERED: Ondansetron 4 MG/2 ML VIAL IV ONE (09:45)
[2024-04-03] MEDS ORDERED: Morphine 4 MG/ML VIAL IV ONE (09:45)
[2024-04-03 10:22] LABS: BASO # 0.1 K/mm3 (0.0-0.2); BASO % 0.7 % (0.0-2.0); EOS # 0.2 K/mm3 (0.0-0.7); EOS % 2.3 % (0.0-4.0); GRAN # 5.4 K/mm3 (1.4-6.5); GRAN % 56.2 % (42.2-75.2); HEMATOCRIT 40.4 % (37.0-47.0); HEMOGLOBIN 13.4 g/dl (12.5-16.0); LYMPH # 3.2 K/mm3 (1.2-3.4); LYMPH % 32.7 % (20.0-51.0); MEAN CELL VOLUME 90 fl (80.0-100.0); MEAN CORPUSCULAR HEMOGLOBIN 30 pg (27-31); MEAN CORPUSCULAR HGB CONC 33 g/dl (33.0-37.0); MEAN PLATELET VOLUME 8.6 fl (7.4-10.4); MONO # 0.7 K/mm3 (0.1-0.6); MONO % 7.6 % (1.7-9.3); PLATELET COUNT 396 K/mm3 (130-400); RED BLOOD COUNT 4.48 M/mm3 (4.10-5.30); REDCELL DISTRIBUTION WIDTH-CV 13.8 % (11.5-14.5)
[2024-04-03 10:38] LABS: BILIRUBIN,TOTAL 0.3 mg/dL (0.2-1.2); CALCIUM 10.8 mg/dL (8.4-10.2); CREATININE, serum 0.88 mg/dL (0.57-1.11); POTASSIUM 3.6 mEq/L (3.5-4.5); TOTAL PROTEIN 7.7 g/dl (6.2-8.1)
[2024-04-03 11:26] VITALS: BP 134/76; PULSE 63
[2024-04-03] MEDS ORDERED: Home oxyCODONE/Acetaminophen 5/325 MG #4 TAB/PACK PO ONE (11:30)
== END 2024-04-03 11:35 | disposition home or self-care (01) ==
LOC: COL.ER 09:18
PROVIDERS: Personal Emergency Response Attendant
DX: R25.2 Cramp and spasm (principal)
CPT/HCPCS: J7030

== ENCOUNTER 2024-04-22 13:59 | Outpatient (RCR) | payer MEDICARE | END 2024-04-28 | disposition home or self-care (01) | LOC: COL.CR | DX: Z02.89 Encounter for other administrative examinations (principal) ==